=== PATIENT | male | born 1960 | race Caucasian/White ===

== ENCOUNTER 2017-06-16 23:47 | Inpatient (IN) | payer BC ==
[~2017-06-16] VITALS: Ht 175.3 cm; Wt 82.6 kg
--- NOTE | 2017-06-17 00:05 | NUR ---
PT BIBSELF AMBULATORY TO ER BED 7 C/O "CP SINCE THIS AFTERNOON; LIGHTHEADED" PT AOX3 RR EVEN AND UNLABORED. NO SOB NOTED. NAD NOTED. NO NVD AT THIS TIME. PT GOWNED AND PLACED ON MONITOR WAITING FOR MD CHIN.
--- NOTE | 2017-06-17 00:12 | NUR ---
DR. INIGUEZ AT BEDSIDE FOR EVAL.
--- NOTE | 2017-06-17 00:26 | NUR ---
LAB AT BEDSIDE FOR BLOOD DRAW
[2017-06-17] MEDS ORDERED: ASPIRIN 81 MG TAB.CHEW ONE (00:27)
[2017-06-17] MEDS ORDERED: NITROGLYCERIN 0.4 MG/TAB BOTTLE ONE (00:27)
[2017-06-17] MEDS ORDERED: ASPIRIN 81 MG TAB.CHEW PO ONE (00:30)
[2017-06-17] MEDS ORDERED: NITROGLYCERIN 0.4 MG/TAB BOTTLE SL ONE (00:30)
--- NOTE | 2017-06-17 00:39 | NUR ---
2ND TAB NITRO SL GIVEN FOR CP 5/10.
[2017-06-17 00:40] LABS: BASOPHILS % (AUTO) 0.5 % (0.0-2.0); EOSINOPHILS # (AUTO) 0.3 /CMM (0.0-0.7); EOSINOPHILS % (AUTO) 4.9 % (0.0-6.0); HEMATOCRIT 35 % (39-51); HEMOGLOBIN 12.4 g/dL (13.5-17.5); LYMPHOCYTES # (AUTO) 2.4 /CMM (0.8-4.8); LYMPHOCYTES % (AUTO) 38.6 % (20.0-44.0); MEAN CORPUSCULAR HEMOGLOBIN 31 PG (26.0-33.0); MEAN CORPUSCULAR HGB CONC 35 g/dl (31.0-36.0); MEAN CORPUSCULAR VOLUME 88 fL (80-96); MONOCYTES # (AUTO) 0.5 /CMM (0.1-1.30); MONOCYTES % (AUTO) 7.7 % (2.0-12.0); NEUTROPHILS % (AUTO) 48.3 % (43.0-81.0); PLATELET COUNT (AUTO) 291 /CMM (150-450); RDW COEFFICIENT OF VARIATION 13.5 (11.5-15.0); RED BLOOD CELL COUNT(AUTO) 3.99 MIL/uL (4.5-6.0); WHITE BLOOD COUNT (AUTO) 6.2 K/uL (4.3-11.0)
--- NOTE | 2017-06-17 00:44 | NUR ---
PT DENIES CP AT THIS TIME.
[2017-06-17 00:53] LABS: CALCIUM, SERUM 8.6 mg/dL (8.5-10.1); CARBON DIOXIDE 26 mmol/L (21-32); CHLORIDE 105 mmol/L (98-107); GLUCOSE 195 mg/dL (74-106); POTASSIUM 3.6 mmol/L (3.5-5.1); SODIUM SERUM 139 mmol/L (136-145); UREA NITROGEN, BLOOD 16 mg/dL (7-18)
[2017-06-17 00:59] LABS: INR 0.95 (0.87-1.13); PARTIAL THROMBOPLASTIN TIME 28 SEC (23-34); PROTHROMBIN TIME 9.9 SECS (9.5-12.7)
[2017-06-17 01:00] LABS: D-DIMER < 0.19 mg/L(FEU (0.17-0.50); TROPONIN I < 0.017 ng/mL (0.00-0.056)
[2017-06-17] MEDS ORDERED: CT SWABBABLE VALVE TRANS SET 1 EA INFUS.SET MC ONE (01:30)
[2017-06-17] MEDS ORDERED: IOHEXOL-350 100 ML VIAL IV ONE (01:30)
[2017-06-17] MEDS ORDERED: IV NS 0.9% 250 ML IV ONE (01:30)
--- NOTE | 2017-06-17 01:39 | NUR ---
PT TO CT.
--- NOTE | 2017-06-17 01:54 | NUR ---
PT RETURNED FROM CT.
--- NOTE | 2017-06-17 02:02 | NUR ---
PT ASSIGNED TO 311-2
--- NOTE | 2017-06-17 02:22 | NUR ---
REPORT GIVEN TO MANUELA MAST FOR CHANO.
[2017-06-17] MEDS ORDERED: MAG HYDROX/AL HYDROX/SIMETH 30 ML UDC PO PRN (03:00)
[2017-06-17] MEDS ORDERED: HYDROCODONE/APAP 5/325MG 1 EACH TABLET PO PRN (03:00)
[2017-06-17] MEDS ORDERED: MAGNESIUM HYDROXIDE 30 ML UDC PO PRN (03:00)
[2017-06-17] MEDS ORDERED: ZOLPIDEM TARTRATE 5 MG TABLET PO PRN (03:00)
[2017-06-17] MEDS ORDERED: ENOXAPARIN SODIUM 40 MG/0.4 ML DISP.SYRIN SQ SCH (03:00)
[2017-06-17] MEDS ORDERED: ACETAMINOPHEN 325 MG TABLET PO PRN (03:00)
[2017-06-17] MEDS ORDERED: Z GUARD REMEDY 2 OZ OINT TP PRN (03:00)
[2017-06-17] MEDS ORDERED: ONDANSETRON HCL/PF 4 MG/2 ML VIAL IVP PRN (03:00)
[2017-06-17] MEDS ORDERED: ENOXAPARIN SODIUM 40 MG/0.4 ML DISP.SYRIN SQ ONE (03:04)
[2017-06-17 04:17] VITALS: BP 111/73
--- NOTE | 2017-06-17 04:23 | NUR ---
PT TRANSFERRED PER ACLS PROTOCOL.
--- NOTE | 2017-06-17 05:01 | NUR ---
RN NOTES PT ARRIVED AT THE FLOOR VIA ACLS PROTOCOL FROM Lenore.Rigoberto RECEIVED AT 0415 VIA [place], ADMIT TO TELE, A/O X4, NO COMPLAIN OF CHEST PAIN AT THIS MOMENT. PT IN STABLE CONDITION, NO S/S OF DISTRESS. SAFETY MEASURES ARE IN PLACE, CALL LIGHT IS IN REACH. WILL CONTINUE TO MONITOR.
--- NOTE | 2017-06-17 06:24 | NUR ---
EXPORT FREIGHT MANAGER CLOSING NOTES AWAKE IN BED, RESPIRATIONS EVEN AND UNLABORED. NOT IN S/S DISTRESS. TOLERATING ROOM AIR 98% STABLE CONDITION. KEPT CLEAN AND DRY AND COMFORTABLE, ATTACH TO TELE MONITOR SR 64'S. ALL NURSING CARE RENDERED. NEEDS ATTENDED AND ANTICIPATED, FREQUENT VISUAL CHECK DONE FOR SAFETY EVERY 2 HOURS. ON LOW BED AT ALL TIMES TO ENSURE SAFETY. SAFE HAZARD FREE ENVIRONMENT PROVIDED. CALL LIGHT WITHIN EASY TO REACH. WILL ENDORSE NEXT SHIFT CONTINUITY OF CARE.
[2017-06-17 08:00] VITALS: BP_SYST 104; BP_DIAS 72; BP_DIAS 75
[2017-06-17] MEDS ORDERED: REGADENOSON 0.4 MG/5 ML DISP.SYRIN IVP ONE (09:00)
[2017-06-17] MEDS ORDERED: ASPIRIN 325 MG TABLET PO SCH (09:00)
[2017-06-17] MEDS ORDERED: ATORVASTATIN 10 MG TABLET PO SCH (09:00)
[2017-06-17 09:29] LABS: IRON, SERUM 76 ug/dl (50-175); TOTAL IRON BINDING CAPACITY 276 ug/dl (250-450)
--- NOTE | 2017-06-17 15:45 | NUR ---
Discharge of patient to home. Spouse present for teaching. Both patient and spouse verbalized understanding. Identification band remove. Left antecubital intravenous saline lock catheter removed. No bleeding, edema, or erythema noted at site.
[2017-06-17 16:00] VITALS: BP 117/71
[2017-06-17 16:04] VITALS: BP 117/71
[2017-06-17 16:13] LABS: THYROID STIMULATING HORMONE 0.492 uIU/mL (0.358-3.74)
[2017-06-18] MEDS ORDERED: ENOXAPARIN SODIUM 40 MG/0.4 ML DISP.SYRIN SQ SCH (09:00)
== END 2017-06-17 18:50 | disposition home or self-care (01) | DRG 206 ==
LOC: ER 23:51 → TELE 06-17 02:28 → MED 06-17 09:14
PROVIDERS: ADMIT Internal Medicine; ATTEND Internal Medicine
DX: M94.0 Chondrocostal junction syndrome [Tietze] (principal); D64.9 Anemia, unspecified; F17.200 Nicotine dependence, unspecified, uncomplicated; I10 Essential (primary) hypertension; Z82.49 Family history of ischemic heart disease and other diseases of the circulatory system; G56.03 Carpal tunnel syndrome, bilateral upper limbs; R73.9 Hyperglycemia, unspecified
CPT/HCPCS: 36415; 71045-TC; 80048-TC; 82306; 82728-TC; 83540-TC; 84439-TC; 84443-TC; 84484-TC; 85025-TC; 85378-TC; 85730-TC; 87081-TC; A4606; A9502; J1650; J2785; J7050; Q9967; Z7610

== ENCOUNTER 2017-08-30 16:34 | Emergency (ER) | payer BC ==
[~2017-08-30] VITALS: Ht 177.8 cm; Wt 848.2 kg
--- NOTE | 2017-08-30 16:34 | NUR ---
PT AMBULATORY TO ER BED 11. C/O DIZZINESS THE WHOLE DAY AND L FOOT NUMBNESS AND TINGGLING SENSATION. PT STATES HAD A COLONOSCOPY FRIDAY AND WAS ADVISED TO SEE A DOCTOR CONCERNING ABOUT A ABNORMAL EKG. PT DENIES CHEST PAIN. GOWNED AND PLACED ON MONITOR. STABLE VITALS. AWAITING MD CHIN.
--- NOTE | 2017-08-30 16:38 | NUR ---
Santana bradshaw in ED - 08/30/17 at 1704 by ALYSSA SADIQ TUBE REMOVED, PATIENT INTUBED WITH ET [address] GAR
--- NOTE | 2017-08-30 16:39 | NUR ---
Santana bradshaw in ED - 08/30/17 at 1704 by ALYSSA 1 EPI GIVEN VIA LEFT IO, 1 SODIUM BICARB GIVEN VIA LEFT IO.
--- NOTE | 2017-08-30 17:03 | NUR ---
DR GAR AT BEDSIDE FOR EVAL.
--- NOTE | 2017-08-30 17:16 | NUR ---
IV LINE STARTED BLOOD DRAWN AND SENT TO LAB.
[2017-08-30] MEDS: IV NS 0.9% 1,000 ML BAG IV ONE (17:22)
[2017-08-30 17:24] LABS: BASOPHILS % (AUTO) 0.7 % (0.0-2.0); EOSINOPHILS # (AUTO) 0.3 /CMM (0.0-0.7); EOSINOPHILS % (AUTO) 4.4 % (0.0-6.0); HEMATOCRIT 39 % (39-51); HEMOGLOBIN 13.8 g/dL (13.5-17.5); LYMPHOCYTES # (AUTO) 1.9 /CMM (0.8-4.8); LYMPHOCYTES % (AUTO) 30.2 % (20.0-44.0); MEAN CORPUSCULAR HEMOGLOBIN 31 PG (26.0-33.0); MEAN CORPUSCULAR HGB CONC 36 g/dl (31.0-36.0); MEAN CORPUSCULAR VOLUME 88 fL (80-96); MONOCYTES # (AUTO) 0.4 /CMM (0.1-1.30); MONOCYTES % (AUTO) 6.6 % (2.0-12.0); NEUTROPHILS # (AUTO) 3.8 /CMM (1.8-8.9); NEUTROPHILS % (AUTO) 58.1 % (43.0-81.0); PLATELET COUNT (AUTO) 288 /CMM (150-450); RDW COEFFICIENT OF VARIATION 12.9 (11.5-15.0); RED BLOOD CELL COUNT(AUTO) 4.42 MIL/uL (4.5-6.0); WHITE BLOOD COUNT (AUTO) 6.4 K/uL (4.3-11.0)
--- NOTE | 2017-08-30 17:27 | NUR ---
RADIOLOGY AT BEDSIDE FOR CHEST XRAY.
[2017-08-30 17:36] LABS: CALCIUM, SERUM 9.2 mg/dL (8.5-10.1); CARBON DIOXIDE 25 mmol/L (21-32); CHLORIDE 105 mmol/L (98-107); CREATININE 1.1 mg/dL (0.6-1.3); GLUCOSE 122 mg/dL (74-106); SODIUM SERUM 140 mmol/L (136-145); UREA NITROGEN, BLOOD 18 mg/dL (7-18)
[2017-08-30 17:38] LABS: INR 0.96 (0.85-1.15)
[2017-08-30 17:44] LABS: TROPONIN I < 0.017 ng/mL (0.00-0.056)
--- NOTE | 2017-08-30 18:27 | NUR ---
Patient discharged to home in stable condition. Written and verbal after care instructions given. Patient verbalizes understanding of instruction.IV removed. Catheter intact and site benign. Pressure and 4x4 applied to site. No bleeding noted.
[2017-08-30 18:29] VITALS: BP 115/74
== END 2017-08-30 18:30 | disposition home or self-care (01) ==
LOC: ER 16:40
DX: R42 Dizziness and giddiness (principal); E11.9 Type 2 diabetes mellitus without complications; I44.1 Atrioventricular block, second degree; J90 Pleural effusion, not elsewhere classified; F10.10 Alcohol abuse, uncomplicated; F17.200 Nicotine dependence, unspecified, uncomplicated; Z88.2 Allergy status to sulfonamides
CPT/HCPCS: 36415; 71045; 80048; 84484; 85025; 85730; 93005; 96360; 99285; 99406; A4606; J7030; Z7610

== ENCOUNTER 2017-10-03 22:42 | Inpatient (IN) | payer BC ==
[~2017-10-03] VITALS: Ht 177.8 cm; Wt 81.2 kg
--- NOTE | 2017-10-03 22:50 | NUR ---
TO BED 9 AMBULATORY C/O NONRADIATING L SIDED CHEST PAIN 5/10 WITH SOB AND NUMBNESS AND TINGLING ON BOTH FEET AND HANDS. PT AAOX4 NO ACUTE DISTRESS NOTED, RESP EVEN AND UNLABORED. PLACE PT ON CARDIAC MONITORING, CONTINUOUS POX. PENDING ER MD CHIN.
--- NOTE | 2017-10-03 22:55 | NUR ---
STARTED SL 18G TO LAC, BLOOD DRAWN AND SENT TO LAB.
[2017-10-03] MEDS ORDERED: ASPIRIN 325 MG TABLET PO ONE (23:00)
[2017-10-03 23:02] LABS: BASOPHILS % (AUTO) 0.6 % (0.0-2.0); EOSINOPHILS # (AUTO) 0.4 /CMM (0.0-0.7); EOSINOPHILS % (AUTO) 5.2 % (0.0-6.0); HEMATOCRIT 45 % (39-51); HEMOGLOBIN 15.5 g/dL (13.5-17.5); LYMPHOCYTES # (AUTO) 2.7 /CMM (0.8-4.8); LYMPHOCYTES % (AUTO) 39.9 % (20.0-44.0); MEAN CORPUSCULAR HEMOGLOBIN 31 PG (26.0-33.0); MEAN CORPUSCULAR HGB CONC 35 g/dl (31.0-36.0); MEAN CORPUSCULAR VOLUME 88 fL (80-96); MONOCYTES # (AUTO) 0.5 /CMM (0.1-1.30); NEUTROPHILS # (AUTO) 3.1 /CMM (1.8-8.9); NEUTROPHILS % (AUTO) 46.3 % (43.0-81.0); PLATELET COUNT (AUTO) 319 /CMM (150-450); RDW COEFFICIENT OF VARIATION 12.5 (11.5-15.0); RED BLOOD CELL COUNT(AUTO) 5.08 MIL/uL (4.5-6.0); WHITE BLOOD COUNT (AUTO) 6.8 K/uL (4.3-11.0)
--- NOTE | 2017-10-03 23:09 | NUR ---
NOTED PT ON A-FIB ON THE -100'S, ER AWARE.
[2017-10-03 23:17] LABS: INR 0.91 (0.87-1.13)
[2017-10-03 23:23] LABS: CALCIUM, SERUM 9.4 mg/dL (8.5-10.1); CARBON DIOXIDE 26 mmol/L (21-32); CHLORIDE 104 mmol/L (98-107); GLUCOSE 136 mg/dL (74-106); POTASSIUM 4.1 mmol/L (3.5-5.1); SODIUM SERUM 142 mmol/L (136-145); UREA NITROGEN, BLOOD 17 mg/dL (7-18)
--- NOTE | 2017-10-03 23:25 | NUR ---
PT IS ASSIGNED TO [facility]#: [id number], PT IS DIAGNOSED WITH CHEST PAIN
[2017-10-03 23:30] LABS: TROPONIN I < 0.017 ng/mL (0.00-0.056)
[2017-10-03 23:33] LABS: B-TYPE NATRIURETIC PEPTIDE 44 PG/ML (0-125)
--- NOTE | 2017-10-04 00:21 | NUR ---
REPORT GIVEN TO REJI/MANUELA FOR CHANO.
[2017-10-04] MEDS ORDERED: ACETAMINOPHEN 325 MG TABLET PO PRN (00:30)
[2017-10-04] MEDS ORDERED: ONDANSETRON HCL/PF 4 MG/2 ML VIAL IVP PRN (00:30)
[2017-10-04] MEDS ORDERED: HYDROCODONE/APAP 5/325MG 1 EACH TABLET PO PRN (00:30)
[2017-10-04] MEDS ORDERED: ASPIRIN 325 MG TABLET ONE (00:32)
[2017-10-04 00:55] VITALS: BP 112/71
--- NOTE | 2017-10-04 00:55 | NUR ---
LOW HEEL BUILDER INITIAL NOTE PT ARRIVED TO UNIT VIA GURNEY FROM ER. WAS ABLE TO AMBULATE FROM GURNEY TO BED. A/O X4 ABLE TO MAKE NEEDS KNOWN. NO SIGNS OF SOB OR DISTRESS, BREATHING EVENLY AND UNLABORED ON RA. DENIES PAIN AT THIS TIME. ON TELE MONITOR SHOWING AFIB 80-100'S. SKIN IS INTACT. IV ACCESS IS INTACT AND PATENT. PT WILL BE NPO PENDING CARDIAC CONSULT. BED IS IN LOW AND LOCKED POSITION, CALL LIGHT WITHIN REACH. WILL CONTINUE TO MONITOR PT
[2017-10-04 04:00] VITALS: BP 116/70
[2017-10-04 04:40] VITALS: BP 116/70
--- NOTE | 2017-10-04 06:28 | NUR ---
PERFUMER CLOSING NOTE PT IS IN BED RESTING, A/O X4 ABLE TO MAKE NEEDS KNOWN. NO SIGNS OF SOB OR DISTRESS, BREATHING EVENLY AND UNLABORED ON 2L NC FOR COMFORT. ON TELE MONITOR PT ALTERNATES BETWEEN AFIB AND SB WITH 5TH DEGREE AV BLOCK. NORCO WAS GIVEN WITH PAIN AND WAS RELIEVED. NO ACUTE CHANGE CHANGES THROUGHOUT THE SHIFT, ALL NEEDS WERE ANTICIPATED AND MET. BED IS IN LOW AND LOCKED POSITION, CALL LIGHT WITHIN REACH. WILL ENDORSE TO DAYSHIFT
[2017-10-04 06:32] LABS: TROPONIN I < 0.017 ng/mL (0.00-0.056)
[2017-10-04 06:34] LABS: ALANINE AMINOTRANSFERASE 44 U/L (12-78); ALBUMIN 3.9 g/dL (3.4-5.0); ALKALINE PHOSPHATASE 49 U/L (46-116); ASPARTATE AMINOTRANSFERASE 17 U/L (15-37); BILIRUBIN,TOTAL 0.3 mg/dL (0.2-1.0); CALCIUM, SERUM 8.7 mg/dL (8.5-10.1); CARBON DIOXIDE 25 mmol/L (21-32); CHLORIDE 105 mmol/L (98-107); CREATININE 0.9 mg/dL (0.6-1.3); GLUCOSE 134 mg/dL (74-106); POTASSIUM 3.8 mmol/L (3.5-5.1); SODIUM SERUM 140 mmol/L (136-145); TOTAL PROTEIN, SERUM 7.4 g/dL (6.4-8.2); UREA NITROGEN, BLOOD 19 mg/dL (7-18)
[2017-10-04 06:42] LABS: CHOLESTEROL 206 mg/dL (<200); HDL CHOLESTEROL 52 mg/dL (40-60); LDL 134 mg/dL (0-99); TRIGLYCERIDES 114 mg/dL (30-150)
--- NOTE | 2017-10-04 07:15 | NUR ---
REPORT RECEIVED AT THE BEDSIDE. PATIENT IS RESTING SLEEPING COMFORTABLY IN BED. NO SOB OR DISTRESS NOTED AT THIS TIME. PATIENT DOES NOT APPEAR TO BE IN PAIN, NO FACIAL GRIMACE NOTED. HEART RATE SR IN THE 70S. REPORTED AFIB OVER NIGHT, NO LONGER IN AFIB. BED IN A LOW POSITION, CALL LIGHT WITHIN PATIENT REACH, WILL MONITOR.
[2017-10-04] MEDS ORDERED: PANTOPRAZOLE 40 MG TABLET.DR PO SCH (07:30)
[2017-10-04 08:00] VITALS: BP 109/76
[2017-10-04] MEDS ORDERED: ASPIRIN 81 MG TAB.CHEW PO SCH (09:00)
[2017-10-04] MEDS ORDERED: METO25TA6 PO ×2 (13:40→14:46)
[2017-10-04] MEDS ORDERED: ASPI-605 PO (14:46)
--- NOTE | 2017-10-04 16:02 | NUR ---
DISCHARGE INSTRUCTIONS GIVEN TO THE PATIENT AND ABLE TO UNDERSTAND. NO SOB OR DISTRESS NOTED AT THIS TIME. PATIENT DENIES CHEST OR GENERAL PAIN. ALL PAPERWORK SIGNED AND BELONGINGS ACCOUNTED FOR. PATIENT HAS A FOLLOW UP APPOINTMENT TO SEE HIS MEDIA SALES CONSULTANT, DR DING, ON FRIDAY 10/06 AT 1000. RX GIVEN TO PT ON DISCHARGE. INFORMED KRYSTAL ALC[place]ARA, THAT LDL IS GREATER THAN 100. PULMONARY SPECIALIST STATES WILL LET PATIENT FOLLOW UP WITH HIS MEDIA SALES CONSULTANT HE STATES HE WAS HOLDING OFF ON STATIN RX. IV REMOVED AND PRESSURE APPLIED, NO BLEEDING NOTED AT THE SITE. PATIENT LEFT IN STABLE CONDITION, AMBULATORY, VIA PRIVATE CAR TO HOME WITH .
== END 2017-10-04 15:55 | disposition home or self-care (01) | DRG 310 ==
LOC: ER 22:44 → TELE 10-04 00:01
PROVIDERS: ADMIT Internal Medicine; ATTEND Nurse Practitioner Acute Care
DX: I48.0 Paroxysmal atrial fibrillation (principal); E83.41 Hypermagnesemia; E11.9 Type 2 diabetes mellitus without complications; I48.91 Unspecified atrial fibrillation; G56.03 Carpal tunnel syndrome, bilateral upper limbs; Z88.2 Allergy status to sulfonamides; F17.200 Nicotine dependence, unspecified, uncomplicated; Z82.49 Family history of ischemic heart disease and other diseases of the circulatory system; I10 Essential (primary) hypertension; I44.1 Atrioventricular block, second degree
CPT/HCPCS: 36415; 71045-TC; 80048-TC; 80053-TC; 80061-TC; 83735-TC; 83880; 84443-TC; 84484-TC; 85025-TC; 85730-TC; 87081-TC; 93307-TC; A4606; Z7610

== ENCOUNTER 2018-09-15 15:38 | Emergency (ER) | payer BC ==
[~2018-09-15] VITALS: Ht 175.3 cm; Wt 90.7 kg
[~2018-09-15 15:38] MED LIST: ASPI-605 PO; METO25TA6 PO
--- NOTE | 2018-09-15 16:23 | NUR ---
samira bloom at bedside for eval.
[2018-09-15] MEDS ORDERED: BACITRACIN ZINC OINT PACKET 1 EA PACKET TP ONE (16:30)
[2018-09-15] MEDS ORDERED: HYDROCODONE/APAP 5/325MG 1 EACH TABLET PO ONE (16:30)
--- NOTE | 2018-09-15 16:32 | NUR ---
PT TO RADIOLOGY FOR HEAD CT SCAN VIA [facility].
[2018-09-15] MEDS ORDERED: HYDROCODONE/APAP 5/325MG 1 EACH TABLET ONE (16:36)
--- NOTE | 2018-09-15 18:09 | NUR ---
provided w/ arm sling. Patient discharged to home in stable condition. Written and verbal after care instructions given. Patient verbalizes understanding of instruction.
[2018-09-15 18:10] VITALS: BP 138/67
== END 2018-09-15 18:11 | disposition home or self-care (01) ==
LOC: ER 15:43
DX: S00.211A Abrasion of right eyelid and periocular area, initial encounter (principal); S09.8XXA Other specified injuries of head, initial encounter; S49.81XA Other specified injuries of right shoulder and upper arm, initial encounter; I48.91 Unspecified atrial fibrillation; E11.9 Type 2 diabetes mellitus without complications; F17.200 Nicotine dependence, unspecified, uncomplicated; Z98.890 Other specified postprocedural states; Z88.2 Allergy status to sulfonamides; Z79.82 Long term (current) use of aspirin; Z79.899 Other long term (current) drug therapy; W18.39XA Other fall on same level, initial encounter; Y93.89 Activity, other specified; Y92.89 Other specified places as the place of occurrence of the external cause; Y99.8 Other external cause status
CPT/HCPCS: 70450-TC; 73030-TC; 73080-TC

== ENCOUNTER 2019-04-25 17:52 | Inpatient (IN) | payer BC ==
[~2019-04-25] VITALS: Ht 175.3 cm; Wt 78.5 kg
[2019-04-25] MEDS ORDERED: DILTIAZEM HCL 50 MG IV IV ONE (18:30)
[2019-04-25] MEDS ORDERED: DILTIAZEM HCL IV 125 MG in IV NS 0.9% 100 ML IV PRN ×2 (18:30→19:30)
[2019-04-25] MEDS ORDERED: DILTIAZEM HCL 25 MG IV ONE (18:33)
[2019-04-25] MEDS ORDERED: ASPI-1152 PO (18:37)
[2019-04-25] MEDS ORDERED: DILT120C51 PO (18:37)
[2019-04-25] MEDS ORDERED: OMEG1CAP PO (18:37)
[2019-04-25] MEDS ORDERED: [UNRECOGNIZED DRUG - CODE] PO (18:37)
[2019-04-25] MEDS ORDERED: VITA400C19 PO (18:37)
[2019-04-25 18:40] LABS: BASOPHILS % (AUTO) 0.6 % (0.0-2.0); EOSINOPHILS % (AUTO) 1.3 % (0.0-6.0); HEMATOCRIT 42 % (39-51); HEMOGLOBIN 14.2 g/dL (13.5-17.5); LYMPHOCYTES # (AUTO) 1.8 /CMM (0.8-4.8); LYMPHOCYTES % (AUTO) 25.8 % (20.0-44.0); MEAN CORPUSCULAR HGB CONC 34 g/dl (31.0-36.0); MEAN CORPUSCULAR VOLUME 87 fL (80-96); MONOCYTES # (AUTO) 0.5 /CMM (0.1-1.30); MONOCYTES % (AUTO) 7.1 % (2.0-12.0); NEUTROPHILS # (AUTO) 4.5 /CMM (1.8-8.9); NEUTROPHILS % (AUTO) 65.2 % (43.0-81.0); PLATELET COUNT (AUTO) 315 /CMM (150-450); RED BLOOD CELL COUNT(AUTO) 4.85 MIL/uL (4.5-6.0); WHITE BLOOD COUNT (AUTO) 6.9 K/uL (4.3-11.0)
[2019-04-25 18:47] LABS: CALCIUM, SERUM 9.9 mg/dL (8.5-10.1); CARBON DIOXIDE 27 mmol/L (21-32); CHLORIDE 88 mmol/L (98-107); CREATININE 1.2 mg/dL (0.6-1.3); GLUCOSE 144 mg/dL (74-106); POTASSIUM 3.5 mmol/L (3.5-5.1); SODIUM SERUM 123 mmol/L (136-145); UREA NITROGEN, BLOOD 21 mg/dL (7-18)
[2019-04-25 18:59] LABS: ALANINE AMINOTRANSFERASE 36 U/L (12-78); ALBUMIN 4.2 g/dL (3.4-5.0); ALKALINE PHOSPHATASE 65 U/L (46-116); ASPARTATE AMINOTRANSFERASE 16 U/L (15-37); B-TYPE NATRIURETIC PEPTIDE 79 PG/ML (0-125); BILIRUBIN,DIRECT 0.1 mg/dL (0.0-0.2); BILIRUBIN,TOTAL 0.6 mg/dL (0.2-1.0); TOTAL PROTEIN, SERUM 8.5 g/dL (6.4-8.2)
[2019-04-25] MEDS ORDERED: IV NS 0.9% 1,000 ML IV PRN (19:18)
[2019-04-25] MEDS ORDERED: ACETAMINOPHEN 325 MG TABLET PO PRN (19:30)
[2019-04-25] MEDS ORDERED: HYDROCODONE/APAP 5/325MG 1 EACH TABLET PO PRN (19:30)
[2019-04-25] MEDS ORDERED: Z GUARD REMEDY 2 OZ OINT TP PRN (19:30)
[2019-04-25] MEDS ORDERED: ZOLPIDEM TARTRATE 5 MG TABLET PO PRN (19:30)
[2019-04-25] MEDS ORDERED: ONDANSETRON HCL/PF 4 MG/2 ML VIAL IVP PRN (19:30)
[2019-04-25] MEDS ORDERED: MAGNESIUM HYDROXIDE 30 ML UDC PO PRN (19:30)
[2019-04-25] MEDS ORDERED: MAG HYDROX/AL HYDROX/SIMETH 30 ML UDC PO PRN (19:30)
[2019-04-25] MEDS ORDERED: ACETAMINOPHEN 325 MG TABLET PO ONE (20:00)
[2019-04-25] MEDS ORDERED: IV NS 0.9% 1,000 ML BAG IV ONE (20:30)
[2019-04-25] MEDS: DILTIAZEM HCL CD 120 MG PO SCH (22:30)
[2019-04-26] VITALS: BP 121/71
[2019-04-26 04:23] VITALS: BP 117/77
[2019-04-26] MEDS: PANTOPRAZOLE 40 MG TABLET.DR PO SCH (06:42)
[2019-04-26 07:04] LABS: BASOPHILS # (AUTO) 0.1 /CMM (0.0-0.2); BASOPHILS % (AUTO) 1.2 % (0.0-2.0); EOSINOPHILS % (AUTO) 5.3 % (0.0-6.0); HEMATOCRIT 39 % (39-51); LYMPHOCYTES # (AUTO) 2.1 /CMM (0.8-4.8); LYMPHOCYTES % (AUTO) 43.2 % (20.0-44.0); MEAN CORPUSCULAR HGB CONC 34 g/dl (31.0-36.0); MEAN CORPUSCULAR VOLUME 87 fL (80-96); MONOCYTES # (AUTO) 0.6 /CMM (0.1-1.30); NEUTROPHILS # (AUTO) 1.8 /CMM (1.8-8.9); NEUTROPHILS % (AUTO) 37.3 % (43.0-81.0); PLATELET COUNT (AUTO) 273 /CMM (150-450); RED BLOOD CELL COUNT(AUTO) 4.45 MIL/uL (4.5-6.0); WHITE BLOOD COUNT (AUTO) 4.8 K/uL (4.3-11.0)
[2019-04-26 07:17] LABS: CALCIUM, SERUM 8.5 mg/dL (8.5-10.1); CREATININE 1.1 mg/dL (0.6-1.3); MAGNESIUM 2.2 mg/dL (1.8-2.4); PHOSPHORUS 4.4 mg/dL (2.5-4.9); POTASSIUM 3.8 mmol/L (3.5-5.1)
[2019-04-26 07:34] LABS: THYROID STIMULATING HORMONE 0.817 uIU/mL (0.358-3.74)
[2019-04-26 08:00] VITALS: BP 121/82
[2019-04-26] MEDS: ASPIRIN EC 81 MG TABLET.DR PO SCH (08:42)
[2019-04-26] MEDS: DILTIAZEM HCL CD 120 MG PO SCH (08:42)
[2019-04-26] MEDS: VITAMIN E 400 UNIT CAPSULE PO SCH (08:43)
[2019-04-26] MEDS ORDERED: MANGANESE PO SCH (09:00)
[2019-04-26] MEDS ORDERED: BORON PO SCH (09:00)
[2019-04-26] MEDS ORDERED: GLUC PO SCH (09:00)
[2019-04-26] MEDS ORDERED: [UNRECOGNIZED DRUG - OTHER] PO SCH (09:00)
[2019-04-26] MEDS ORDERED: Medication Not On Formulary EA (Omega-3 Fatty Acids/Fish Oil (Fish Oil 1,000 Mg Capsule) PO SCH (09:00)
[2019-04-26] MEDS ORDERED: MSM PO SCH (09:00)
[2019-04-26 12:00] VITALS: BP 121/80
[2019-04-26] MEDS ORDERED: IV NS 0.9% 250 ML IV ONE (12:51)
[2019-04-26] MEDS: POLYVINYL ALCOHOL 15 ML BOTTLE EACHEYE PRN (12:51)
[2019-04-26] MEDS ORDERED: IOHEXOL-350 100 ML VIAL IV ONE (12:51)
[2019-04-26] MEDS ORDERED: CT SWABBABLE VALVE TRANS SET 1 EA INFUS.SET MC ONE (12:51)
[2019-04-26 16:00] VITALS: BP 108/67
[2019-04-26 20:00] VITALS: BP 118/70
[2019-04-27] VITALS: BP 124/72
[2019-04-27 04:00] VITALS: BP 125/76
[2019-04-27 06:37] LABS: BASOPHILS # (AUTO) 0.1 /CMM (0.0-0.2); BASOPHILS % (AUTO) 0.9 % (0.0-2.0); EOSINOPHILS % (AUTO) 4.5 % (0.0-6.0); HEMATOCRIT 38 % (39-51); HEMOGLOBIN 12.7 g/dL (13.5-17.5); LYMPHOCYTES # (AUTO) 2.2 /CMM (0.8-4.8); MEAN CORPUSCULAR HGB CONC 34 g/dl (31.0-36.0); MEAN CORPUSCULAR VOLUME 87 fL (80-96); MONOCYTES # (AUTO) 0.6 /CMM (0.1-1.30); NEUTROPHILS # (AUTO) 3.1 /CMM (1.8-8.9); NEUTROPHILS % (AUTO) 49.6 % (43.0-81.0); PLATELET COUNT (AUTO) 261 /CMM (150-450); RED BLOOD CELL COUNT(AUTO) 4.33 MIL/uL (4.5-6.0); WHITE BLOOD COUNT (AUTO) 6.3 K/uL (4.3-11.0)
[2019-04-27 07:17] LABS: CALCIUM, SERUM 8.3 mg/dL (8.5-10.1); PHOSPHORUS 3.5 mg/dL (2.5-4.9); POTASSIUM 4.2 mmol/L (3.5-5.1)
[2019-04-27] MEDS: PANTOPRAZOLE 40 MG TABLET.DR PO SCH (07:29)
[2019-04-27] MEDS: POLYVINYL ALCOHOL 15 ML BOTTLE EACHEYE PRN (07:29)
[2019-04-27 07:53] LABS: MAGNESIUM 2.2 mg/dL (1.8-2.4)
[2019-04-27 08:00] VITALS: BP 130/80
[2019-04-27 08:29] VITALS: BP 130/80
[2019-04-27] MEDS: DILTIAZEM HCL CD 120 MG PO SCH (08:29)
[2019-04-27] MEDS: ASPIRIN EC 81 MG TABLET.DR PO SCH (08:29)
[2019-04-27] MEDS: VITAMIN E 400 UNIT CAPSULE PO SCH (08:30)
== END 2019-04-27 13:20 | disposition home or self-care (01) | DRG 309 ==
LOC: ER 17:53 → TELE 21:16
PROVIDERS: ADMIT Student in an Organized Health Care Education/Training Program; ATTEND Hospitalist
DX: I48.91 Unspecified atrial fibrillation (principal); E87.1 Hypo-osmolality and hyponatremia; E86.0 Dehydration; F17.200 Nicotine dependence, unspecified, uncomplicated; I10 Essential (primary) hypertension; Z79.899 Other long term (current) drug therapy; Z82.49 Family history of ischemic heart disease and other diseases of the circulatory system; Z98.890 Other specified postprocedural states; Z88.2 Allergy status to sulfonamides; Z79.82 Long term (current) use of aspirin; R73.03 Prediabetes
CPT/HCPCS: 36415; 71045-TC; 75574; 80048-TC; 80061-TC; 80076-TC; 82962-TC; 83735-TC; 83880; 84100-TC; 84443-TC; 84484-TC; 85025-TC; 85730-TC; 87081-TC; 93307-TC; G0378; J3490; J7030; J7050; Q9967

== ENCOUNTER 2020-01-10 11:20 | Inpatient (IN) | payer BC ==
[~2020-01-10] VITALS: Ht 175.3 cm; Wt 91.6 kg
[~2020-01-10 11:20] MED LIST changes: +ASPI-1152 PO; -ASPI-605 PO; +DILT120C51 PO; -METO25TA6 PO; +OMEG1CAP PO; +VITA400C19 PO; +[UNRECOGNIZED DRUG - CODE] PO
--- NOTE | 2020-01-10 11:26 | NUR ---
Santana bradshaw in [facility] - 01/10/20 at 1128 by NILESH URINE SPECIMEN COLLECTED AND SENT TO LAB.
--- NOTE | 2020-01-10 11:27 | NUR ---
patient came in to the er c/o Acute left vision change/blurred with associated dizziness-happened 30 min The patient had ablation 10 days ago - Dr. Bassett. On room air, breathing evenly and unlabored, connected to the monitor and pulse ox. kept comfortable, will continue to monitor accordingly.
--- NOTE | 2020-01-10 11:28 | NUR ---
AT BEDSIDE FOR EVAL.
--- NOTE | 2020-01-10 11:29 | NUR ---
IV LINE ESTABLISHED BLOOD DRAWN AND SENT TO LAB.
--- NOTE | 2020-01-10 11:31 | NUR ---
code stroke called
--- NOTE | 2020-01-10 11:33 | NUR ---
wheeled to radiology
[2020-01-10] MEDS ORDERED: IOHEXOL-350 100 ML VIAL IV ONE (11:35)
[2020-01-10] MEDS ORDERED: IV NS 0.9% 250 ML IV ONE (11:35)
[2020-01-10] MEDS ORDERED: CT SWABBABLE VALVE TRANS SET 1 EA INFUS.SET MC ONE (11:35)
[2020-01-10] MEDS ORDERED: PANT40TA4 PO (11:38)
[2020-01-10] MEDS ORDERED: APIX5TAB PO (11:38)
[2020-01-10] MEDS ORDERED: DILT30TA2 PO (11:38)
[2020-01-10 11:40] LABS: BASOPHILS # (AUTO) 0.1 /CMM (0.0-0.2); EOSINOPHILS % (AUTO) 4.3 % (0.0-6.0); HEMATOCRIT 40 % (39-51); HEMOGLOBIN 13.7 g/dL (13.5-17.5); LYMPHOCYTES # (AUTO) 1.9 /CMM (0.8-4.8); LYMPHOCYTES % (AUTO) 35.1 % (20.0-44.0); MEAN CORPUSCULAR HGB CONC 34 g/dl (31.0-36.0); MEAN CORPUSCULAR VOLUME 90 fL (80-96); MONOCYTES # (AUTO) 0.6 /CMM (0.1-1.30); MONOCYTES % (AUTO) 10.9 % (2.0-12.0); NEUTROPHILS # (AUTO) 2.7 /CMM (1.8-8.9); NEUTROPHILS % (AUTO) 48.7 % (43.0-81.0); PLATELET COUNT (AUTO) 284 /CMM (150-450); RED BLOOD CELL COUNT(AUTO) 4.49 MIL/uL (4.5-6.0); WHITE BLOOD COUNT (AUTO) 5.5 K/uL (4.3-11.0)
[2020-01-10 11:48] LABS: POTASSIUM 4.1 mmol/L (3.5-5.1)
--- NOTE | 2020-01-10 11:50 | NUR ---
patient came back from ct
[2020-01-10 11:53] LABS: BILIRUBIN,DIRECT 0.1 mg/dL (0.0-0.2); BILIRUBIN,TOTAL 0.6 mg/dL (0.2-1.0); TOTAL PROTEIN, SERUM 7.8 g/dL (6.4-8.2)
--- NOTE | 2020-01-10 12:51 | NUR ---
EPIC PAGED. AWAITING CALL BACK FROM JOSH BOB
[2020-01-10] MEDS ORDERED: DILTIAZEM HCL 30 MG TABLET PO PRN (13:30)
--- NOTE | 2020-01-10 15:07 | NUR ---
report given to Kecia Castanon for kin
--- NOTE | 2020-01-10 15:27 | NUR ---
wheeled patient via gurney accompanied by RN and emt in no distress, RN at bedside to assume care
--- NOTE | 2020-01-10 15:45 | NUR ---
NETWORK SUPPORT SPECIALIST RECEIVING NOTES ADMISSION FROM ER RECEIVED. PATIENT IN MEDICALLY STABLE CONDITION; A/O X4. VS WNL; PATIENT ON ROOM AIR; BREATHING IS EVEN AND UNLABORED; NO SOB PRESENT. ON TELEMETRY WITH A CURRENT READING ON NORMAL SINUS RHYTHM 68. LAC G #18 INTACT AND FLUSHING WELL. SKIN INTACT. BELONGINGS ACCOUNTED FOR. SAFETY PRECAUTIONS IN PLACE; BED IN LOW POSITION AND LOCKED, RAILS UP X2, CALL LIGHT WITHIN REACH. WILL CONTINUE TO MONITOR.
[2020-01-10 16:00] VITALS: BP 111/70
[2020-01-10] MEDS: APIXABAN 5 MG TABLET PO SCH (16:43)
[2020-01-10] MEDS: PANTOPRAZOLE 40 MG TABLET.DR PO SCH (16:43)
[2020-01-10] MEDS ORDERED: Z GUARD REMEDY 2 OZ OINT TP PRN (18:30)
[2020-01-10] MEDS ORDERED: ACETAMINOPHEN 325 MG TABLET PO PRN (18:30)
[2020-01-10] MEDS ORDERED: ONDANSETRON HCL/PF 4 MG/2 ML VIAL IVP PRN (18:30)
--- NOTE | 2020-01-10 18:45 | NUR ---
VISUAL AND STOCK ASSOCIATE CLOSING NOTES PATIENT IN BED, ASLEEP. PATIENT ON ROOM AIR; BREATHING IS EVEN AND UNLABORED; NO SOB PRESENT. TELE MONITOR WITH A CURRENT READING OF NORMAL SINUS RHYTHM 68 BPM. NO COMPLAINS OF PAIN. LAC G #18 PRESENT AND INTACT INFUSING NS AT 75 MLS/HR. SAFETY PRECAUTIONS IN PLACE; BED IN LOW POSITION AND LOCKED, RAILS UP X2, CALL LIGHT WITHIN REACH. WILL ENDORSE TO FLOW MATCH SOFA CUTTER NURSE.
[2020-01-10] MEDS: IV NS 0.9% 1,000 ML IV PRN (18:55)
--- NOTE | 2020-01-10 19:10 | NUR ---
RELISH BLENDER NOTES RECEIVED PT IN BED AWAKE AND ABLE TO MAKE NEEDS KNOWN. PT A/O X3. RESPIRATIONS EVEN AND UNLABORED WITH NO S/S OF ACUTE DISTRESS OR SOB NOTED. NO COMPLAINTS OF PAIN AT THIS TIME. PT NOTED WITH LAC G #18 PRESENT AND INTACT INFUSING NS AT 75 MLS/HR. SAFETY MEASURES IN PLACE WITH BED IN LOWEST LOCKED POSITION WITH SIDE RAILS UP X2. CALL LIGHT WITHIN REACH. WILL CONTINUE TO MONITOR.
[2020-01-10 20:00] VITALS: BP 129/83
[2020-01-11] VITALS: BP 114/71
--- NOTE | 2020-01-11 01:45 | NUR ---
DATA TECHNICAL LEAD NOTES PT NOTED WITH LAB RESULTS FOR TROP TRENDING UP FROM 0.062 TO 0.069, MADE AWARE NO NEW ORDERS. WILL CONTINUE TO MONITOR.
[2020-01-11 04:00] VITALS: BP_SYST 114; BP_SYST 131; BP_DIAS 71; BP_DIAS 79
--- NOTE | 2020-01-11 07:05 | NUR ---
REFERENCE AND INSTRUCTION LIBRARIAN NOTES PT IN BED AWAKE AND ABLE TO MAKE NEEDS KNOWN. PT A/O X3. RESPIRATIONS EVEN AND UNLABORED WITH NO S/S OF ACUTE DISTRESS OR SOB NOTED THROUGHOUT SHIFT. NO COMPLAINTS OF PAIN AT THIS TIME. PT NOTED WITH LAC G #18 PRESENT AND INTACT INFUSING NS AT 75 MLS/HR. SAFETY MEASURES IN PLACE WITH BED IN LOWEST LOCKED POSITION WITH SIDE RAILS UP X2. CALL LIGHT WITHIN REACH. WILL ENDORSE TO ONCOMING NURSE FOR CHANO.
[2020-01-11 08:00] VITALS: BP 125/74
--- NOTE | 2020-01-11 08:00 | NUR ---
rn notes RECEIVED PATIENT IN THE BED A/A/O X3/4 AND ABLE TO MAKE NEEDS KNOWN. NO ACUTE RESPIRATORY DISTRESS, REFUSED PAIN. V/S WNL, PATIENT ABLE TO ELEVATE UPPER AND LOWER EXTREMITIES, NEURO ASSESSMENT DONE. IV ACCESS ON LEFT AC AREA INTACT, INFUSING NS AT 75 ML/HR. ADMINISTERED SCHEDULED MEDICATION, SAFETY MEASURES IN PLACE WITH BED IN LOWEST LOCKED POSITION WITH SIDE RAILS UP X2. CALL LIGHT WITHIN REACH. TOLERATED BREAKFAST WELL. CONTINUED MONITORING.
[2020-01-11 08:21] LABS: BASOPHILS % (AUTO) 0.8 % (0.0-2.0); EOSINOPHILS % (AUTO) 4.7 % (0.0-6.0); HEMATOCRIT 38 % (39-51); HEMOGLOBIN 13.2 g/dL (13.5-17.5); LYMPHOCYTES # (AUTO) 1.6 /CMM (0.8-4.8); LYMPHOCYTES % (AUTO) 32.4 % (20.0-44.0); MEAN CORPUSCULAR HGB CONC 35 g/dl (31.0-36.0); MEAN CORPUSCULAR VOLUME 89 fL (80-96); MONOCYTES # (AUTO) 0.5 /CMM (0.1-1.30); MONOCYTES % (AUTO) 10.3 % (2.0-12.0); NEUTROPHILS # (AUTO) 2.6 /CMM (1.8-8.9); NEUTROPHILS % (AUTO) 51.8 % (43.0-81.0); PLATELET COUNT (AUTO) 269 /CMM (150-450); RED BLOOD CELL COUNT(AUTO) 4.26 MIL/uL (4.5-6.0)
[2020-01-11 08:31] LABS: CALCIUM, SERUM 8.4 mg/dL (8.5-10.1); CREATININE 0.9 mg/dL (0.6-1.3); MAGNESIUM 2.4 mg/dL (1.8-2.4); PHOSPHORUS 3.4 mg/dL (2.5-4.9)
[2020-01-11 08:37] LABS: THYROID STIMULATING HORMONE 0.73 uIU/mL (0.358-3.74)
[2020-01-11] MEDS: ASPIRIN EC 81 MG TABLET.DR PO SCH ×2 (09:00→09:41)
[2020-01-11] MEDS: DILTIAZEM HCL CD 120 MG PO SCH (09:41)
[2020-01-11] MEDS: PANTOPRAZOLE 40 MG TABLET.DR PO SCH ×2 (09:43→17:57)
[2020-01-11] MEDS: APIXABAN 5 MG TABLET PO SCH ×2 (09:43→17:58)
[2020-01-11] MEDS: IV NS 0.9% 1,000 ML IV PRN ×2 (09:45→22:46)
--- NOTE | 2020-01-11 11:00 | NUR ---
RN NOTES SEEN PATIENT BY SPEECH THERAPIST, PT, AND ALSO TELECOMMUNICATION WITH NECROLOGIST Dr LLAMAS. NO NEW ORDERS AT THIS TIME, CONTINUED MONITORING. PATIENT USING BATHROOM.
--- NOTE | 2020-01-11 14:00 | NUR ---
RN NOTES ADMINISTERED TYLENOL 650 MG PO PRN FOR HEADACHE PER PATIENT REQUEST. DVT PUMP ON.
[2020-01-11 16:00] VITALS: BP 112/64
--- NOTE | 2020-01-11 17:03 | NUR ---
Tax Advisor Consultation: SW met with this patient today. Patient is a 59 year old male, alert, oriented x 4, pleasant and receptive to meeting with this SW. Patient was sitting up in bed, in his assigned hospital room. Patient states that he came to the ED yesterday after experiencing vision loss in his left eye, along with some dizziness. Patient reported that he had heart surgery about 10 days ago, and has had a stressful week due to the loss of his sister and his mother being diagnosed with COVID. Patient lives alone, is independent with his ADL's. Patient is , but states that he and his ex- have a very good relationship, and that she is his emergency contact (Mei Hsieh [phone]). Patient's address and phone number listed on the face sheet are correct ([address], [place] [address], ). Patient has 2 adult daughters, who are both in [id number] colleges. Patient reports that all of his physician's are at [facility], and that he had his recent heart surgery at [facility], however came to [facility] ED due to it being the closest ED to his house. SW administered the PHQ-9, and patient scored a 0. Patient stated not having any major changes in his mood or behavior over the last couple of weeks. DC plans discussed with the patient, and patient stated that he plans on returning home after this hospitalization. Patient expressed not having any concerns at this time. Patient's affect and behavior were appropriate. Patient was engaged in conversation with this SW, speech and thought process were clear and appropriate. At times, patient smile and laughed appropriately. No SI, no hallucinations, no delusions. No further SS interventions needed at this time, however social science teacher will be available to the patient, as needed, and will work with the interdisciplinary team to ensure a safe discharge plan.
--- NOTE | 2020-01-11 18:30 | NUR ---
RN NOTES PATIENT STABLE NEURO ASSESSMENT DONE, PATIENT STABLE, REFUSED PAIN, INFUSING NS AT 75 ML/HR ON LEFT AC INTACT. ENDORSED ONCOMING NURSE FOLLOW PLAN OF CARE.
--- NOTE | 2020-01-11 19:39 | NUR ---
MS RN OPENING NOTES RECEIVED PATIENT RESTING IN BED COMFORTABLY; A/OX3; BREATHING EVEN AND UNLABORED; TOLERATING ROOM AIR WELL; NO SOB NOTED; L AC #18 INFUSING NS @ 75ML/HR; PATIENT ABLE TO MAKE NEEDS KNOWN; SAFETY PRECAUTIONS IMPLEMENTED; BED LOCKED IN LOW POSITION; SIDE RAILSX2; CALL LIGHT WITHIN REACH; WILL CONT TO MONITOR
[2020-01-11 20:00] VITALS: BP 130/78
--- NOTE | 2020-01-11 22:24 | NUR ---
MS RN NOTES STROKE SCALE COMPLETED; SCORE OF 0, NO CHANGES FROM PREVIOUS SCALE; CHARGE NURSE AWARE; PER CHARGE NURSE NO NEED TO NOTIFY MD IF NO CHANGES; WILL CONT TO MONITOR
--- NOTE | 2020-01-12 06:50 | NUR ---
MS RN CLOSING NOTES PATIENT RESTING IN BED COMFORTABLY; A/OX4; BREATHING EVEN AND UNLABORED; NO SOB NOTED; PATIENT TOLERATING ROOM AIR WELL; PATIENT ABLE TO MAKE NEEDS KNOWN; ALL NEEDS RENDERED; SAFETY PRECAUTIONS IMPLEMENTED; BED LOCKED IN LOW POSITION; SIDE RAILSX2; CALL LIGHT WITHIN EASY REACH; WILL ENDORSE CHANO TO ONCOMING SHIFT
--- NOTE | 2020-01-12 07:30 | NUR ---
RECEIVED PT. IN AM ALERT AND ORIENTED X3.
[2020-01-12 08:00] VITALS: BP 140/89
[2020-01-12] MEDS: ASPIRIN EC 81 MG TABLET.DR PO SCH ×2 (08:55→09:00)
[2020-01-12 08:56] VITALS: BP 140/89
[2020-01-12] MEDS: DILTIAZEM HCL CD 120 MG PO SCH (08:56)
[2020-01-12] MEDS: PANTOPRAZOLE 40 MG TABLET.DR PO SCH (08:56)
[2020-01-12] MEDS: APIXABAN 5 MG TABLET PO SCH (08:57)
--- NOTE | 2020-01-12 09:00 | NUR ---
DID REFUSE ASA WITH AM MEDS.
--- NOTE | 2020-01-12 11:30 | NUR ---
HUNTER DRYLAND FARMER IN AND DC ORDER GIVEN.PT. WITH NO COMPLAINTS OFFERED.
--- NOTE | 2020-01-12 14:10 | NUR ---
GIVEN ALL DC INSTRUCTIONS AND AWARE TO FOLLOW UP WITH [facility].ALL REPORTS FAXED TO PROJECT SAFETY MANAGER PER PT'S REQUEST.HEP LOCK OUT. BELONGING SHEET SIGNED.ESCORTED TO LOBBY FOR DISCHARGE BY RN.
== END 2020-01-12 14:15 | disposition home or self-care (01) | DRG 123 ==
LOC: ER 11:27 → TELE 14:57 → MED 01-11 08:59
PROVIDERS: ADMIT Nurse Practitioner Acute Care; ATTEND Nurse Practitioner Acute Care
DX: G45.3 Amaurosis fugax (principal); I21.4 Non-ST elevation (NSTEMI) myocardial infarction; D68.69 Other thrombophilia; I48.91 Unspecified atrial fibrillation; E78.5 Hyperlipidemia, unspecified; R40.2362 Coma scale, best motor response, obeys commands, at arrival to emergency department; R40.2142 Coma scale, eyes open, spontaneous, at arrival to emergency department; R40.2252 Coma scale, best verbal response, oriented, at arrival to emergency department; I10 Essential (primary) hypertension; Z79.01 Long term (current) use of anticoagulants; Z82.49 Family history of ischemic heart disease and other diseases of the circulatory system; E11.9 Type 2 diabetes mellitus without complications; R29.700 NIHSS score 0
CPT/HCPCS: 36415; 70450-TC; 70496-TC; 70498-TC; 71045-TC; 80048-TC; 80061-TC; 80076-TC; 82962-TC; 83735-TC; 84100-TC; 84443-TC; 84484-TC; 85025-TC; 85730-TC; 87081-TC; 92611-TC; 93307-TC; 97116-TC; 97530-TC; G0378; J7030; J7050; Q9967